=== PATIENT | female | born 1980 | race Caucasian/White ===

== ENCOUNTER 2017-07-24 02:57 | Observation (INO) ==
[2017-07-24 03:28] LABS: MANUAL DIFF NEEDED? NO
[2017-07-24] MEDS ORDERED: SODIUM CHLORIDE 0.9% INJ ONE ×2 (03:38→05:40)
[2017-07-24] MEDS ORDERED: PHENERGAN IV ONE ×2 (03:38→05:40)
[2017-07-24] MEDS ORDERED: NS 1,000 ML IV ONE ×2 (03:39→07:41)
--- NOTE | 2017-07-24 03:52 | PROVIDER DOCUMENTATION ---
HPI-Abdominal Pain/GI Problem - General Chief Complaint: N/V/D Stated Complaint: V/D/N Time Seen by Provider: 07/24/17 03:25 Source: patient, family Allergies/Adverse Reactions: Patient Allergies Allergy/AdvReac Type Severity Reaction Status Date / Time prochlorperazine Allergy Unknown Verified 07/24/17 07:52 [From Compazine] Home Medications: Home Medication List Medication Instructions Recorded Confirmed Last Taken Type Fluoxetine HCl [Prozac] 40 mg PO DAILY 03/16/16 07/24/17 07/23/17 08:00 History Trazodone [Desyrel] 50 mg PO QHS 03/16/16 07/24/17 07/23/17 08:00 History Carvedilol 12.5 mg PO DAILY 07/24/17 07/24/17 07/23/17 08:00 History - History of Present Illness-ABD Nature of Presenting Problems: Patient felt perfectly well when she went to work at 9 pm but around 1 am developed nausea, vomiting and diarrhea. She reportrs other workers similarly ill but no common food source. Denies fever or chills. Abdominal Pain Onset Location: reports: generalized abdomen Pain Radiation: reports: no radiation Quality of Pain: reports: cramping Severity in ED: reports: mild Onset/Duration: reports: 1-3 hours ago Timing: reports: still present Activities at Onset: reports: light activity Exposure to sick contacts?: Yes Modifying Factors: improves with: nothing Associated Symptoms: reports: diaphoresis Last BM: 24 hours ago Dark Stools Present?: reports: none noticed Rectal Bleeding: reports: none Rectal Pain: reports: none Emesis Description: reports: clear Bruising or Bleeding Gums?: No Similar Symptoms Previously?: No Recently seen or treated by another doctor?: No Review of Systems - Adult - REVIEW OF SYSTEMS - ADULT Constitutional: reports: no symptoms reported Eyes: reports: no symptoms reported Ears, Nose, Mouth & Throat: reports: no symptoms reported Cardiovascular: reports: no symptoms reported Respiratory: reports: no symptoms reported Gastrointestinal: reports: no symptoms reported Genitourinary: reports: no symptoms reported Musculoskeletal: reports: no symptoms reported Integumentary: reports: no symptoms reported Neurological: reports: no symptoms reported Psychiatric: reports: no symptoms reported Endocrine: reports: no symptoms reported Hematologic/Lymphatic: reports: no symptoms reported Allergic/Immunologic: reports: no symptoms reported Past History - Adult - PAST MEDICAL HISTORY-ADULT Review of Records: reports: Old Records Reviewed, Nursing Assessment Review, Medications Reviewed Cardiovascular: reports: palpitations, other (PSVT) Respiratory: reports: denies history Gastrointestinal: reports: denies history. denies: cholelithiasis, cancer, Crohn's, colitis, IBS Obstetrical/Gynecological: reports: denies history Psychiatric: reports: anxiety - IMMUNIZATION STATUS Childhood Immunizations: See Nurse Assessment Flu Vaccine: See Nurse Assessment - FAMILY HISTORY Family History: reviewed, not pertinent Physical Exam-General - PHYSICAL EXAM-ADULT Initial Vital Signs Reviewed: Yes - CONSTITUTIONAL General Appearance: moderate distress, thin - EYES Eyes: PERRL/EOMI, pink conjunctivae - HEAD, EARS, NOSE, MOUTH & THROAT HENMT: normocephalic/atraumatic, normal ENT inspection - NECK Neck: non-tender, full range of motion - RESPIRATORY Respiratory: chest non-tender, lungs clear, normal breath sounds - CARDIOVASCULAR Cardiovascular: normal peripheral pulses, regular rate, rhythm, no edema - GASTROINTESTINAL (ABDOMEN) Abdominal Exam: normal bowel sounds, non tender, no organomegaly - LYMPHATIC Lymphatic: no adenopathy - MUSCULOSKELETAL Back Exam: normal inspection Extremity: normal range of motion, non-tender - SKIN Integumentary: other (multiple small macular lesions on each foot) - NEUROLOGIC Neurologic: grossly normal Progress - PLAN OF CARE/RESULTS Progress/Plan/Lab Results: Vital Signs - 8 hr 07/24/17 02:59 Temperature 98.1 F Pulse Rate 67 Respiratory Rate 20 Blood Pressure 115/66 O2 Sat by Pulse Oximetry 96 Orders Category Date Time Status Saline Loc DIRECTED Care 07/24/17 03:12 Active NPO Diet 07/24/17 03:12 Active AMYLASE [CHEM] Stat Lab 07/24/17 03:10 Received CBC WITH ELECTRONIC DIFF [HEME] Stat Lab 07/24/17 03:10 Results COMPREHENSIVE METABOLIC PANEL [CHEM] Stat Lab 07/24/17 03:10 Received Flu Swab [INFLUENZA SCREEN A/B] Stat Lab 07/24/17 03:06 Received LIPASE [CHEM] Stat Lab 07/24/17 03:10 Received URINALYSIS W/POSS RFLX CULT-1 [URINALYSIS] Stat Lab 07/24/17 03:12 Uncollected URINE DRUG SCREEN Stat Lab 07/24/17 03:37 Uncollected 0.9% Sodium Chloride Inj [Ns] 1,000 ml Med 07/24/17 03:39 Active IV 999 mls/hr Promethazine [Phenergan] Med 07/24/17 03:38 Discontinued 25 mg IV NOW ONE Sodium Chloride 0.9% Med 07/24/17 03:38 Discontinued 10 ml INJ NOW ONE Result Diagrams: 07/24/17 03:10 07/24/17 13:30 Departure - Departure Date of Disposition Decision: 07/24/17 Time of Disposition Decision: 08:30 DIAGNOSIS: Gastroenteritis Disposition: ADMITTED INPATIENT 09 Certified Medical Emergency: Emergent Condition: Good - Critical Care Note This patient required my direct & personal management of CC.: No Attestation - Physician/ ANDI Attestation Patient care was provided by Advanced Practice Provider:: No The physician spent face to face time with patient:: Yes Advanced Practice Provider documentation review:: Supervising physician onsite and consulted in the evaluation and care of this patient. The physician did have a face to face encounter with the patient.
[2017-07-24 03:57] LABS: BASO% 0.2 % (0.0-0.8); EOS# 0.03 X1000 (0.0-0.7); EOS% 0.2 % (0.0-10.0); HEMATOCRIT 37.3 % (37.0-47.0); HEMOGLOBIN 12.8 g/dL (12.0-16.0); IMM GRAN# 0.05 X1000 (0.0-0.04); IMM GRAN% 0.3 % (0.0-0.5); LYMPH# 2.17 X1000 (1.2-3.4); LYMPH% 12.9 % (20.5-51.1); MCH 31.1 PG (27-31); MCHC 34.3 g/dL (33-37); MCV 90.5 FL (81-99); MONO# 0.52 X1000 (0.11-0.59); MONO% 3.1 % (1.7-9.3); MPV 10.3 FL (7.4-10.4); NEUT% 83.3 % (42.2-75.2); PLT 364 X1000 (130-400); RBC 4.12 XMIL (4.2-5.4)
[2017-07-24 03:58] LABS: AGAP 22; ALBUMIN 4.8 g/dL (3.5-5.0); ALKALINE PHOSPHATASE 54 U/L (32-104); AMYLASE 43 U/L (20-200); BUN 16 mg/dL (8-22); CALCIUM 9.3 mg/dL (8.8-10.2); CHLORIDE 101 mmol/L (98-107); COSMO 285; GOT 21 U/L (10-30); GPT 15 U/L (10-36); LIPASE 32 U/L (13-60); SODIUM 141 mmol/L (136-145); TCO2 18 mmol/L (25-35); TOTAL BILIRUBIN 0.34 mg/dL (0.20-1.00); TOTAL PROTEIN 7.8 g/dL (6.3-8.3)
[2017-07-24 04:18] LABS: URINE CULTURE NEEDED? NO; URINE MICRO REVIEW NEEDED? NO; URINE SOURCE CLEAN CATCH
[2017-07-24 04:22] LABS: BILIRUBIN URINE NEGATIVE (NEGATIVE); BLOOD URINE NEGATIVE (NEGATIVE); COLOR YELLOW; GLUCOSE URINE NEGATIVE (NEGATIVE); LEUKOCYTES URINE NEGATIVE (NEGATIVE); NITRITE URINE NEGATIVE (NEGATIVE); PH URINE 6.5; PROTEIN URINE 30 mg/dL (NEGATIVE); SP GRAVITY URINE 1.025; TURBIDITY URINE CLEAR (CLEAR); UROBILINOGEN URINE NORMAL (NORMAL)
[2017-07-24 04:24] LABS: UR EPITHELIAL CELLS <10 /HPF (<10); URINE BACTERIA 1+ /HPF; URINE RBC <10 /HPF (<10); URINE WBC <10 /HPF (<10)
[2017-07-24 04:42] LABS: UR AMPHETAMINES QUAL NONE DETECTED (NONE DETECT); UR BARBITUATES QUAL NONE DETECTED (NONE DETECT); UR BENZODIAZEPIN QUAL NONE DETECTED (NONE DETECT); UR CANNABINOIDS QUAL PRESUMPTIVE POSITIVE (NONE DETECT); UR COCAINE QUAL NONE DETECTED (NONE DETECT); UR METHADONE QUAL NONE DETECTED (NONE DETECT); UR OPIATES QUAL NONE DETECTED (NONE DETECT); UR OXYCODONE QUAL NONE DETECTED (NONE DETECT); UR PCP QUAL NONE DETECTED (NONE DETECT)
[2017-07-24] MEDS ORDERED: ZOFRAN IV ONE (07:39)
[2017-07-24] MEDS ORDERED: NS 1,000 ML ONE (07:44)
[2017-07-24 07:58] LABS: ACETONE SERUM NEGATIVE (NEGATIVE)
[2017-07-24 08:05] LABS: ACETAMINOPHEN < 1.2 ug/mL (10-30)
--- NOTE | 2017-07-24 08:14 | Diag Imaging Result Doc PS360 ---
EXAM: FLAT/UPRIGHT ABD/1 VIEW CHEST HISTORY: acidosis/n/v/leukocytosis TECHNIQUE: Three views COMPARISON: Chest is compared to 03/16/2016 FINDINGS: The lungs are well expanded. No cardiomegaly. No pneumonia. There is nipple jewelry. No free air beneath the diaphragm. There is jewelry in the umbilicus. No bowel obstruction. No organomegaly. No abnormal abdominal calcifications. There are several pelvic phleboliths. IMPRESSION: No acute abnormality. Electronically signed by Dwain Jaeger 07/24/2017 8:12 AM
[2017-07-24] MEDS ORDERED: ZOFRAN IV PRN (09:05)
[2017-07-24] MEDS: PROTONIX IV SCH (09:45)
[2017-07-24] MEDS: SODIUM CHLORIDE 0.9% INJ SCH ×2 (09:46→09:52)
--- NOTE | 2017-07-24 10:10 | HISTORY AND PHYSICAL ---
PRIMARY CARE PHYSICIAN: Caitlin Borjas MD CHIEF COMPLAINT: Abdominal pain, nausea, vomiting, and diarrhea. HISTORY OF PRESENT ILLNESS: Mrs. Mcgill is a 36-year-old female with a history of anxiety and paroxysmal supraventricular tachycardia, who presents to the ER with around 12 hours of nausea, vomiting, and diarrhea. Symptoms began last night, onset was fairly acute. She did have some abdominal pain and cramping last night, but this has since resolved and she now just has nausea, vomiting, and diarrhea. She denies any fevers or chills. She does report that there were people at work that had similar symptoms over the past few days, but she denies any new, novel, or uncooked foods recently. She has had no recent foreign travel. She denies any hematemesis or hematochezia. No melena. When she got to the ER, she had labs and diagnostics done. She was noted to be leukocytotic and was also noted to have elevated anion gap metabolic acidosis. Otherwise, labs and diagnostics were negative. She was positive for cannabinoids on her drug screen. Abdominal and chest x-ray did not show anything acute. She is going to be admitted for observation status. PAST MEDICAL HISTORY: 1. Anxiety and depression. 2. Paroxysmal supraventricular tachycardia. 3. Marijuana dependence. SURGICAL HISTORY: None. SOCIAL HISTORY: She smokes daily marijuana. Denies alcohol or tobacco use. She works at [employer]. She is . is at the bedside. She has no children. FAMILY HISTORY: Mother is alive with a history of celiac. Dad is alive with a history of paroxysmal supraventricular tachycardia. REVIEW OF SYSTEMS: Fourteen-point review of systems obtained and found to be negative, with the exception of the HPI. ALLERGIES: Prochlorperazine. HOME MEDICATIONS: Coreg 12.5 mg daily, Prozac 40 mg daily, trazodone 50 mg at hs. PHYSICAL EXAMINATION: VITAL SIGNS: Blood pressure is 134/91, heart rate 78, respiratory rate is 20, O2 saturation 98% on room air. Temperature is 98.1 degrees. GENERAL: This is a well-developed, well-nourished female, lying in hospital bed. In no acute distress. NEUROLOGIC: She is awake and alert. She follows commands without focal deficits. HEENT: Head is atraumatic, normocephalic. Her pupils are equal, round, reactive to light. Oral mucosa is dry. Trachea is midline. No jugular venous distention. CHEST: Clear to auscultation bilaterally. CARDIOVASCULAR: Regular rate and rhythm. S1-S2 is noted. No murmurs. GASTROINTESTINAL: Abdomen is soft, nondistended, nontender. Bowel sounds are active. EXTREMITIES: No edema, clubbing, or cyanosis. Pulses 2+ bilaterally. DIAGNOSTIC DATA: Chest and abdomen x-ray are negative. WBC 16.83, hemoglobin 12.8, hematocrit 37.3. Platelet count 364,000, sodium 141, potassium 4.0, chloride 101, CO2 18, anion gap 22. BUN 16, creatinine 0.7, glucose 137. LFTs, lipase, and albumin all within normal limits. Urine test is negative. Protein 30, ketones 150. Toxicology is positive for cannabinoids, acetone, and acetaminophen levels are negative. ASSESSMENT AND PLAN: 1. Presumed gastroenteritis: We will order stool studies. Continue IV fluids and antiemetics. Will keep her NPO. If symptoms persist after the next 24 hours, would consider either GI consultation or advanced imaging of the abdomen. test is negative. 2. High anion gap metabolic acidosis: Thus far, testing is negative. She does have ketones in her urine, so this is likely more of a dehydration and ketosis issue. We have ordered a lactic acid which is pending. Will recheck a BMP after she has been hydrated and see if there is any improvement. If not, we will order an ABG for further assessment. 3. Leukocytosis: This is likely reactive; however, we have ordered blood cultures and a lactic acid. There is no evidence of systemic infection. No evidence of clear infection at this time, with the exception of probable gastroenteritis. We have ordered stool studies. 4. History of paroxysmal supraventricular tachycardia: Heart rate regular and the rate is normal. We will hold on Coreg for now as she is nauseated. Monitor telemetry. 5. Anxiety and depression: Chronic and stable. We will hold on her Prozac for now and restart when she is able to tolerate p.o. diet. 6. Marijuana dependence: We have advised the patient that marijuana can induce a certain type of cyclic vomiting syndrome. On top of that, we have explained the deleterious effects of marijuana use. We will continue daily cessation education. 7. Deep vein thrombosis prophylaxis with Lovenox. Further recommendations to follow. Dictated by REINALDO Lomeli for Venu Lemons MD cc: REINALDO Lomeli MD Amber J. Whitfield, MD I have seen and examined patient. Patient presents with abdominal pain and diarrhea likely viral gastro-enteritis. will continue symptomatic management, adequate hydration.Stool studies and hopefully discharge patient home soon pending her clinical course. MTDD
[2017-07-24 10:49] LABS: FREE T4 1.48 ng/dL (0.93-1.70)
[2017-07-24 14:21] LABS: AGAP 15; BUN 13 mg/dL (8-22); CALCIUM 8.7 mg/dL (8.8-10.2); CHLORIDE 108 mmol/L (98-107); COSMO 281; POTASSIUM 3.8 mmol/L (3.5-5.1); SODIUM 141 mmol/L (136-145); TCO2 18 mmol/L (25-35)
[2017-07-24] MEDS: NS 1,000 ML IV SCH (14:57)
[2017-07-24] MEDS ORDERED: LEVAQUIN 500 MG/D5W 500 MG/100 ML IVPB IV SCH (15:30)
[2017-07-24] MEDS: FLAGYL 500 MG/NS 500 MG/100 ML IVPB IV SCH ×2 (17:51→21:49)
[2017-07-25] MEDS: NS 1,000 ML IV SCH ×2 (00:30→08:52)
[2017-07-25] MEDS: FLAGYL 500 MG/NS 500 MG/100 ML IVPB IV SCH ×2 (03:15→08:55)
[2017-07-25 06:43] LABS: HEMATOCRIT 33.1 % (37.0-47.0); MCH 31.5 PG (27-31); MCHC 33.2 g/dL (33-37); MCV 94.8 FL (81-99); MPV 9.7 FL (7.4-10.4); RBC 3.49 XMIL (4.2-5.4)
[2017-07-25 06:58] LABS: AGAP 12; BUN 13 mg/dL (8-22); CHLORIDE 110 mmol/L (98-107); COSMO 282; POTASSIUM 3.1 mmol/L (3.5-5.1); SODIUM 142 mmol/L (136-145); TCO2 20 mmol/L (25-35)
[2017-07-25 08:12] VITALS: BP 116/68
[2017-07-25] MEDS: LOVENOX SUBQ SCH ×2 (08:54→09:01)
[2017-07-25] MEDS: PROTONIX IV SCH (08:55)
--- NOTE | 2017-07-25 11:01 | PROGRESS NOTE ---
DATE: 07/25/2017 SUBJECTIVE: This morning, Ms. Mcgill referred to be doing a lot better. No more vomiting and nausea. No diarrhea. Patient is tolerating her diet very well. OBJECTIVE: Vital signs: Blood pressure is 116/64, pulse of 78, respirations 18 , temperature 98.0 degrees, patient is saturating 97% on room air. General: Ms. Mcgill is a 36- year-old female. She is in bed. She is not in any distress. Adequate BMI. Mucosa is pink and moist. Chest: Clear. Cardiovascular: Regular rate and rhythm. There is no murmurs, no rubs, no gallops. Abdomen: Soft, nontender. Extremities: No pedal edema. Bowel sounds are present. There is no hepatosplenomegaly. SINGING MESSENGER: Patient is awake, alert and oriented. There is no focal neurological deficit. LABORATORY DATA: Has been reviewed. WBC is down to 10.30, hemoglobin is 11.0, platelet count of 265. Chemistry is also reviewed. Sodium is 142, potassium is 3.1, chloride is 110, bicarb is 20. Plasma lactate is down to 0.9. ASSESSMENT: 1. Intractable nausea and vomiting, with diarrhea which is consistent with gastroenteritis. I think this is probably viral versus food borne poisoning. She is; however, clinically stable now. She is tolerating her diet. We were not able to get any stool because since patient is here, she has not had any stools so we could not do any stool determinations. I do not think she needs any more antibiotics and I have discontinued this. I have advised her just to hydrate herself very well. 2. Leukocytosis on presentation, which I think is reactive, has normalized. 3. Mild gap acidosis due to lactic acid probably from dehydration. Lactic acid is improved and bicarb is also improved. 4. Cannabis use. According to the patient she normally uses it to calm her anxiety. I did explain to her some of the side effects of cannabis is also nausea and vomiting and she should be extremely careful. 5. History of anxiety and depression. She will continue with her home medications and follow up with her primary care doctor. 6. Supraventricular tachycardia. Patient has a history of supraventricular tachycardias. She is currently on carvedilol. She follows up with her primary care doctor. Over here in the hospital though her heart rate is stable. So, I think Ms. Mcgill is clinically stable. Nausea, vomiting and diarrhea have all improved. She is going to be discharged home to follow up with her primary care doctor. She has been advised to adequately orally hydrate herself and also be mindful of the use of the cannabis. cc: Venu Lemons MD MTDD
--- NOTE | 2017-07-26 08:34 | DISCHARGE SUMMARY ---
ADMISSION DATE: 07/24/2017 DISCHARGE DATE: 07/25/2017 CONSULTATION: None. PERTINENT PROCEDURES: Abdominal x-ray, no acute findings. DISCHARGE DIAGNOSES: 1. Gastroenteritis. She is clinically stable now, tolerating her diet. Patient advised to stay hydrated. 2. Leukocytosis. Resolved. 3. Mild gap acidosis, improved. 4. History of anxiety and depression. Continue home medications and follow up with PCP. 5. Supraventricular tachycardia. Continue home Coreg. 6. Cannabis use. The patient advised to be mindful of use. HOSPITAL COURSE: Ms. Mcgill is a 36-year-old female with a past medical history of anxiety, paroxysmal supraventricular ventricular tachycardia and marijuana use. She presented to the ER with 12 hours of nausea, vomiting and diarrhea. In the ER labs revealed a white blood cell count of 16.83, carbon dioxide of 18. Anion gap of 15 and plasma lactate of 3.4. She was also positive for cannabinoids. The patient was admitted to the floor for observation. She was started on antibiotics, antiemetics, PPI and was intravenously hydrated. Today she is clinically stable. Nausea, vomiting and diarrhea have all improved. She is going to be discharged home to follow up with her primary care provider. She has been advised to adequately orally hydrate herself and also be mindful of the cannabis use. VITAL SIGNS: Temp is 98 degrees, heart rate 74, respirations 18, blood pressure 116/68. She is 97% on room air. DISCHARGE DIET: Regular. DISCHARGE MEDICATIONS: Carvedilol 12.5 mg p.o. daily. Fluoxetine 40 mg p.o. daily and trazodone 50 mg p.o. at bedtime. FOLLOWUP: The patient needs to follow up with her primary care physician, Dr. Borjas. Dictated by REINALDO James for Venu Lemons MD cc: MD Dr. Indio Dominguez Time spent for discharge 34 minutes. [facility]
== END 2017-07-25 11:39 | disposition home or self-care (01) ==
LOC: ED 02:57 → 3N 02:57
PROVIDERS: ATTEND Internal Medicine